=== PATIENT | female | born 1970 | race Caucasian/White ===

== ENCOUNTER → 2017-05-26 | Outpatient (CLI) | payer BC ==
[~2017-05-26] MED LIST: MECL25 PO
[2017-05-26 17:28] LABS: Influenza A Negative (NEGATIVE); Influenza B Negative (NEGATIVE)
== END | disposition home or self-care (01) ==
LOC: LAB 16:08
PROVIDERS: Family Medicine
DX: R05 Cough (principal)
CPT/HCPCS: 87804

== ENCOUNTER → 2018-03-08 | Outpatient (CLI) | payer BC ==
[2018-03-09 15:07] LABS: HPV 16 Negative (Negative); HPV 18 Negative (Negative); HPV OTHER HR TYPES Negative (Negative)
== END | disposition home or self-care (01) ==
LOC: LAB SHORT 17:57 → PLD 17:57 → LAB 17:57
PROVIDERS: Obstetrics & Gynecology Gynecology
DX: R87.810 Cervical high risk human papillomavirus (HPV) DNA test positive (principal); R87.89 Other abnormal findings in specimens from female genital organs
CPT/HCPCS: 87624; G0123

== ENCOUNTER 2018-03-28 07:34 | Day surgery (SDC) | payer BC ==
[~2018-03-28] VITALS: Ht 172.7 cm; Wt 73.0 kg
--- NOTE | 2018-03-28 08:30 | NUR ---
Ambulatory in Day Surgery Surgical site prepped with 2% Chlorhexidine cloth wipe. History, Chart, Medications and Allergies reviewed before start of procedure.Lungs clear T/O to Auscultation. Patient confirms NPO status and agrees with scheduled surgery. Pre-Op teaching done. Pt verbalizes understanding. Patient reports completing Chlorhexadine shower X2 prior to admission to hospital.
--- NOTE | 2018-03-28 10:32 | NUR ---
PERCOCET GIVEN PER ORDER. TOLERATING JUICE AND CRACKERS. DAUGHTER AT BEDSIDE. BARRIE Huitron/Babita/Avni.
== END 2018-03-28 22:38 | disposition home or self-care (01) ==
LOC: ORSCMMR 07:34 → ORD 09:00 → ORSCMMR 09:00
PROVIDERS: Surgery
PROC: 0YU60JZ Supplement Left Inguinal Region with Synthetic Substitute, Open Approach (ICD-10-PCS; principal; 2018-03-28 09:00)
DX: K40.90 Unilateral inguinal hernia, without obstruction or gangrene, not specified as recurrent (principal)
CPT/HCPCS: 87081; C1781; J0690; J1100; J2250; J2405; J3010; J7120

== ENCOUNTER → 2018-09-01 | Outpatient (CLI) | payer BC | LOC: LAB 15:40 → LAB SHORT 15:40 | DX: N39.0 Urinary tract infection, site not specified (principal) | CPT/HCPCS: 87077; 87086; 87186 ==

== ENCOUNTER → 2020-12-23 | Outpatient (CLI) | payer BC ==
[2020-12-23 16:17] LABS: Campylobacter Sp Not Detected (NOT DETECT)
[2020-12-23 16:18] LABS: Adenovirus F 40/41 Not Detected (NOT DETECT); Astrovirus Not Detected (NOT DETECT); Cryptosporidium Not Detected (NOT DETECT); Cyclospora Cayetanensis Not Detected (NOT DETECT); E. Coli O157 Not Detected (NOT DETECT); Entamoeba Histolytica Not Detected (NOT DETECT); Enteroaggregative E. coli-EAEC Not Detected (NOT DETECT); Enteropathogenic E. coli-EPEC Not Detected (NOT DETECT); Enterotoxigenic E. coli-ETEC Not Detected (NOT DETECT); Giardia Lamblia Not Detected (NOT DETECT); Norovirus GI/GII Not Detected (NOT DETECT); Plesiomonas Shigelloides Not Detected (NOT DETECT); Rotavirus A Not Detected (NOT DETECT); Salmonella Sp Not Detected (NOT DETECT); Sapovirus Not Detected (NOT DETECT); Shiga Toxin-prod E. coli-STEC Not Detected (NOT DETECT); Shigella/Enteroin E. coli-EIEC Not Detected (NOT DETECT); Vibrio Cholerae Not Detected (NOT DETECT); Vibrio Sp Not Detected (NOT DETECT); Yersinia Enterocolitica Not Detected (NOT DETECT)
== END | disposition home or self-care (01) ==
LOC: LAB SHORT 07:30
PROVIDERS: Physician Assistant
DX: R19.7 Diarrhea, unspecified (principal)
CPT/HCPCS: 0097U; 87324